=== PATIENT | female | born 1980 | race African-American/Black ===

== ENCOUNTER 2016-08-06 15:29 | Emergency (ER) | payer SELFPAY ==
[2016-08-06 14:01] LABS: BASOPHILS 0.2 %; BASOPHILS ABSOLUTE 0.01 10/3/uL (0.0-0.16); EOSINOPHILS 1.8 %; ER CBC TAT 0 Hrs 05 Mins; HEMATOCRIT 35.9 % (36.0-48.0); HEMOGLOBIN 11.8 g/dL (12.0-16.0); IMMATURE GRANULOCYTES 0.4 %; IMMATURE GRANULOCYTES ABSOLUTE 0.02 10/3/uL (0.0-0.11); LYMPHOCYTES 41.6 %; MEAN CORPUS HGB CONC 32.9 g/dL (32.0-36.0); MEAN CORPUSCULAR HEMOGLOB 28.9 pg (26.0-34.0); MEAN CORPUSCULAR VOLUME 87.8 fL (80-100); MONOCYTES 7.1 %; MONOCYTES ABSOLUTE 0.39 10/3/uL (0.21-1.20); NEUTROPHILS 48.9 %; NEUTROPHILS ABSOLUTE 2.71 10/3/uL (2.02-8.40); PLATELET COUNT 280 10/3/uL (150-400); RBC DISTRIBUTION WIDTH 13.5 % (12.0-16.0); RED CELL COUNT 4.09 10/6/uL (4.0-5.6); WHITE BLOOD CELLS 5.5 10/3/uL (4.5-10.5)
[2016-08-06 14:04] LABS: MANUAL DIFF NO %
[2016-08-06 14:10] LABS: PROTIME (NOT ORD) 13.5 SEC (12.0-14.5)
[2016-08-06 14:11] LABS: PARTIAL THROMBO TIME 32.5 SEC (22.5-37.2)
[2016-08-06 14:17] LABS: BUN (BLOOD UREA NITROGEN) 10 MG/DL (6-23); CALCIUM, SERUM 8.5 MG/DL (8.5-10.4); CHEST PAIN PROFILE TAT 0 Hrs 21 Mins; CHLORIDE, SERUM 110 MMOL/L (96-112); CO2 (CARBON DIOXIDE) 26 MMOL/L (24-34); GFR AFRICAN AMERICAN 95 ML/MIN (>=60); GFR NON AFRICAN AMERICAN 82 ML/MIN (>=60); GLUCOSE, SERUM 79 MG/DL (60-99); POTASSIUM, SERUM 4.2 MMOL/L (3.5-5.3); SODIUM, SERUM 140 MMOL/L (135-148); TROPONIN I 0.02 NG/ML (<0.05)
== END 2016-08-06 15:47 | disposition home or self-care (01) ==
LOC: ER 15:29
PROVIDERS: Hospitalist
DX: M54.6 Pain in thoracic spine (principal); Z88.1 Allergy status to other antibiotic agents
CPT/HCPCS: 71020; 80048; 83735; 84484; 85025; 85610; 85730; 93005; 96372; 99284; J1885